=== PATIENT | female | born 1995 | race Caucasian/White ===

== ENCOUNTER 2019-08-23 15:51 | Emergency (ER) | payer OTHER ==
[2019-08-23 16:05] VITALS: BP 111/66; PULSE 83; TEMP 98.3; BMI 20.9
--- NOTE | 2019-08-23 16:50 | PDOC ---
History of Present Illness - General Chief Complaint: Pain Stated Complaint: ABD PAIN/NAUSEOUS History Source: Patient Exam Limitations: No Limitations - History of Present Illness Initial Comments: 08/23/19 16:34 Patient is a 23 year old female with no pmhx c/o LUQ abd pain x 2 days. Patient states the pain is sharp 5/10 localized to the LUQ with no radiation only on palpation. States yesterday the pain was worse and went the [facility] ED for evaluation. Labs work up was normal and was feeling better after a few hours without any other intervention and so requested to be discharge. Symptoms assoc/w nausea, no vomiting and started after drinking coffee yesterday evening. Today states she is only had coffee to drink all day, however her pain is way better than yesterday but her parents decided to bring her to the emergency room for reevaluation. Denies fever, chills, hematuria, dysuria. PMD: Dr. Hilario Lorenzo PMHX: neg PSOCHX: neg etoh, durg, cig ALL: NKDA GENERAL/CONSTITUTIONAL: [No fever or chills. No weakness. No weight change.] HEAD, EYES, EARS, NOSE AND THROAT: [No change in vision. No ear pain or discharge. No sore throat.] CARDIOVASCULAR: [No chest pain or shortness of breath.] RESPIRATORY: [No cough, wheezing, or hemoptysis.] GASTROINTESTINAL: [(+) nausea, (-) vomiting, diarrhea or constipation. No rectal bleeding.] GENITOURINARY: [No dysuria, frequency, or change in urination.] MUSCULOSKELETAL: [No joint or muscle swelling or pain. No neck or back pain.] SKIN AND BREASTS: [No rash or easy bruising.] NEUROLOGIC: [No headache, vertigo, loss of consciousness, or loss of sensation.] PSYCHIATRIC: [No depression or anxiety.] ENDOCRINE: [No increased thirst. No abnormal weight change.] HEMATOLOGIC/LYMPHATIC: [No anemia, easy bleeding, or history of blood clots.] ALLERGIC/IMMUNOLOGIC: [No hives or skin allergy. No latex allergy.] GENERAL: [The patient is awake, alert, and fully oriented, in no acute distress. ] HEAD: [Normal with no signs of trauma.] EYES: [Pupils equal, round and reactive to light, extraocular movements intact, sclera anicteric, conjunctiva clear.] ENT: [Ears normal, nares patent, oropharynx clear without exudates. Moist mucous membranes.] NECK: [Normal range of motion, supple without lymphadenopathy, JVD, or masses.] LUNGS: [Breath sounds equal, clear to auscultation bilaterally. No wheezes, and no crackles.] HEART: [Regular rate and rhythm, normal S1 and S2 without murmur, rub.] ABDOMEN: [Soft, nontender, normoactive bowel sounds. No guarding, no rebound. No masses.] EXTREMITIES: [Normal range of motion, no edema. No clubbing or cyanosis. No cords, erythema, or tenderness.] NEUROLOGICAL: [Cranial nerves II through XII grossly intact. Normal speech, normal gait.] PSYCH: [Normal mood, normal affect.] SKIN: [Warm, Dry, normal turgor, no rashes or lesions noted.] Past History - Past Medical History Allergies/Adverse Reactions: Allergies Allergy/AdvReac Type Severity Reaction Status Date / Time No Known Allergies Allergy Verified 08/23/19 16:05 Home Medications: Ambulatory Orders NK [No Known Home Medication] 08/23/19 COPD: No - Psycho Social/Smoking Cessation Hx Smoking History: Never smoked *Physical Exam - Vital Signs Last Vital Signs Temp Pulse Resp BP Pulse Ox 98.3 F 83 18 111/66 99 08/23/19 16:03 08/23/19 16:03 08/23/19 16:03 08/23/19 16:03 08/23/19 16:03 Medical Decision Making - Medical Decision Making 08/23/19 16:34 Patient is a 23 year old female with no pmhx c/o LUQ abd pain x 2 days. Patient states the pain is sharp 5/10 localized to the LUQ with no radiation only on palpation. States yesterday the pain was worse and went the [facility] ED for evaluation. Labs work up was normal and was feeling better after a few hours without any other intervention and so requested to be discharge. Symptoms assoc/w nausea, no vomiting and started after drinking coffee yesterday evening. Today states she is only had coffee to drink all day, however her pain is way better than yesterday but her parents decided to bring her to the emergency room for reevaluation. Denies fever, chills, hematuria, dysuria. Called [facility] emergency room room discussed with Dr. Alfonso Ann the care provided for the patient yesterday. States that patient had normal CMP, normal lipase, normal CBC, U preg was negative, UA was trace blood, with WBC was 0-3. No diagnostics done or was indicated. Patient with symptoms of left upper quadrant pain which have resolved since yesterday's visit to another emergency room. Her exam is benign, abdomen is soft and nontender today. I will not pursue any further work-up in the emergency room today but rather refer patient to her primary care doctor and certified medical records coder if her symptoms are persistent. I discussed the physical exam findings, ancillary test results and final diagnoses with the patient. I answered all of the patient's questions. The patient was satisfied with the care received and felt comfortable with the discharge plan and treatment plan. The Patient agrees to follow up with the primary care physician within 24-72 hours. Discharge - Discharge Information Problems reviewed: Yes Clinical Impression/Diagnosis: Abdominal pain Qualifiers: Abdominal location: left upper quadrant Qualified Code(s): R10.12 - Left upper quadrant pain Condition: Stable Disposition: HOME - Follow up/Referral Referrals: Agustin Sanchez MD [Staff Physician] - - Patient Discharge Instructions Patient Printed Discharge Instructions: DI for Abdominal Pain-Adult Additional Instructions: Your Discharge Instructions: You must call primary care physician within 24 hours to arrange follow-up. Return to the Emergency Department with any new, persistent or worsening symptoms, for fever, chills, SOB, dizziness or any other concerning changes that may occur. If your pain does not not resolve you should follow-up with the certified medical records coder. We have provided you with the number and the address. - Post Discharge Activity
== END 2019-08-23 16:55 | disposition home or self-care (01) ==
LOC: JER 15:51
DX: R10.12 Left upper quadrant pain (principal)
CPT/HCPCS: 99283-25

== ENCOUNTER 2021-10-07 01:31 | Emergency (ER) | payer OTHER ==
[2021-10-07 02:09] VITALS: BP 109/70; PULSE 97; TEMP 98.5; BMI 26.6
[2021-10-07] MEDS ORDERED: ACETAMINOPHEN 325 MG TABLET (FP) PO ONE (02:49)
[2021-10-07] MEDS ORDERED: ACETAMINOPHEN 325 MG TABLET (FP) ONE (02:58)
[2021-10-07] MEDS ORDERED: METHOCARBAMOL 500 MG TABLET PO ONE (03:23)
[2021-10-07] MEDS ORDERED: LIDOCAINE 5% TOPICAL PATCH TP ONE (03:23)
[2021-10-07] MEDS ORDERED: LIDOCAINE 5% TOPICAL PATCH ONE (03:39)
[2021-10-07] MEDS ORDERED: METHOCARBAMOL 500 MG TABLET ONE (03:40)
[2021-10-07] MEDS ORDERED: LIDOCAINE PATCH REMOVAL MC SCH (22:00)
== END 2021-10-07 04:00 | disposition home or self-care (01) ==
LOC: JER 01:31
DX: M54.50 Low back pain, unspecified (principal); V43.62XA Car passenger injured in collision with other type car in traffic accident, initial encounter
CPT/HCPCS: 99283-25

== ENCOUNTER 2023-09-01 15:46 | Emergency (ER) | payer OTHER ==
[2023-09-01 15:48] VITALS: BMI 32.5
[2023-09-01] MEDS ORDERED: KETOROLAC TROMETHAMINE 15 MG/ML VIAL IVPUSH ONE (16:29)
[2023-09-01] MEDS ORDERED: SODIUM CHLORIDE 0.9% 500 ML INFUS.BAG IV ONE (16:29)
[2023-09-01] MEDS ORDERED: KETOROLAC TROMETHAMINE 15 MG/ML VIAL ONE (16:49)
[2023-09-01 16:56] LABS: BASO % 0.5 % (0-2.0); HEMATOCRIT 40.4 % (32.4-45.2); HEMOGLOBIN 13.6 GM/dL (10.7-15.3); LYMPH % 14.1 % (8-40); MCH 30.4 pg (25.7-33.7); MCHC 33.7 g/dl (32.0-36.0); MEAN CELL VOLUME 90.3 fl (80-96); MEAN PLT VOLUME 8.3 fl (7.5-11.1); NEUT % 73.4 % (42.8-82.8); PLATELET COUNT 277 10^3/uL (134-434); RBC 4.48 M/mm3 (3.60-5.2); RDW 13.1 % (11.6-15.6); WHITE BLOOD COUNT 6.2 K/mm3 (4.0-10.0)
[2023-09-01 17:06] LABS: POTASSIUM 5.7 mmol/L (3.5-5.1)
[2023-09-01 17:08] LABS: BLOOD UREA NITROGEN 4.1 mg/dL (7-18); CALCIUM 9.3 mg/dL (8.5-10.1)
[2023-09-01 17:11] LABS: CREATININE 0.9 mg/dL (0.55-1.3)
[2023-09-01 17:13] LABS: TOT PROT 8.6 g/dl (6.4-8.2)
[2023-09-01 18:38] LABS: POTASSIUM 3.7 mmol/L (3.5-5.1)
[2023-09-01 18:40] LABS: ALBUMIN 3.7 g/dl (3.4-5.0); CALCIUM 8.8 mg/dL (8.5-10.1)
[2023-09-01 18:41] LABS: BLOOD UREA NITROGEN 4.3 mg/dL (7-18)
[2023-09-01 18:43] LABS: CREATININE 0.7 mg/dL (0.55-1.3)
[2023-09-01 18:45] LABS: BILIRUBIN,TOTAL 0.8 mg/dL (0.2-1); TOT PROT 7.4 g/dl (6.4-8.2)
[2023-09-01 19:13] VITALS: BP 177/74; PULSE 103; RESP 19; TEMP 98.3
== END 2023-09-01 19:19 | disposition home or self-care (01) ==
LOC: JERFT 15:46
PROC: 3E033NZ Introduction of Analgesics, Hypnotics, Sedatives into Peripheral Vein, Percutaneous Approach (ICD-10-PCS; principal; 2023-09-01)
DX: R09.81 Nasal congestion (principal); J02.9 Acute pharyngitis, unspecified; M79.10 Myalgia, unspecified site; U07.1 COVID-19
CPT/HCPCS: 0241U-QW; 36415; 80053; 84703; 85025; 93005; 93010; 99284-25